=== PATIENT | female | born 1955 | race Caucasian/White ===

== ENCOUNTER 2023-06-21 18:59 | Emergency (ER) | payer MEDICAID, OTHER ==
[~2023-06-21] VITALS: Ht 147.3 cm; Wt 68.2 kg
[~2023-06-21 18:59] MED LIST: CALC667T3 PO; DEXT15SY3 PO; ERGO500050 PO; ESCI-8 PO; LEVO-72 PO; METO-558 PO; NIFE90TA4 PO
[2023-06-21 19:07] VITALS: TEMP 97.7
[2023-06-21] MEDS ORDERED: CefTRIAXone 1 GM/DEXTROSE 50 ML IV ONE (19:30)
[2023-06-21] MEDS ORDERED: SODIUM CHLORIDE 0.9% 1,000 ML IV ONE (19:30)
[2023-06-21 19:50] LABS: BASOPHILS % (AUTO) 1.3 % (0.0-2.0); EOSINOPHILS % (AUTO) 1.5 % (1.0-6.0); HEMATOCRIT 39.7 % (36-46); HEMOGLOBIN 12.3 g/dL (12.0-16.0); LYMPHOCYTES # (AUTO) 0.6 K/uL (1.0-4.8); LYMPHOCYTES % (AUTO) 11.7 % (22.0-44.0); MEAN CORPUSCULAR HEMOGLOBIN 30.7 pg (26.0-34.0); MEAN CORPUSCULAR HGB CONC 31.1 G/dL (31.0-37.0); MEAN CORPUSCULAR VOLUME 99 fL (80-100); MONOCYTES # (AUTO) 0.6 K/uL (0.1-1.0); MONOCYTES % (AUTO) 12.3 % (2.0-9.0); NEUTROPHILS # (AUTO) 3.6 K/uL (1.8-7.7); NEUTROPHILS % (AUTO) 73.2 % (40.0-70.0); PLATELET COUNT (AUTO) 142 K/uL (150-450); RED BLOOD CELL COUNT(AUTO) 4.01 MIL/uL (4.00-5.20); RED CELL DISTRIBUTION WIDTH 18.8 % (11.5-14.5)
[2023-06-21 19:56] LABS: CALCIUM, TOTAL 9.1 mg/dL (8.8-10.5); CREATININE 3.85 mg/dL (0.60-1.30); POTASSIUM 3.4 mmol/L (3.5-5.1)
[2023-06-21 20:02] LABS: BILIRUBIN,TOTAL 1.1 mg/dL (0.1-1.0); TOTAL PROTEIN, SERUM 7.5 g/dL (6.4-8.2)
[2023-06-21 20:13] LABS: LACTIC ACID 1.1 mmol/L (0.4-2.0)
[2023-06-21 20:21] LABS: ALBUMIN 2.9 g/dL (3.4-5.0)
[2023-06-21 21:35] VITALS: BP 98/44; PULSE 102; RESP 18
== END 2023-06-21 22:15 | disposition left against medical advice (07) ==
LOC: EMS 19:01
DX: L03.116 Cellulitis of left lower limb (principal); L03.115 Cellulitis of right lower limb; I95.9 Hypotension, unspecified; I12.0 Hypertensive chronic kidney disease with stage 5 chronic kidney disease or end stage renal disease; N18.6 End stage renal disease; Z99.2 Dependence on renal dialysis; Z98.890 Other specified postprocedural states; Z94.0 Kidney transplant status; Z91.013 Allergy to seafood
CPT/HCPCS: 99291; 96365; 80053; 83605; 85025; 87040; 36415; 71045; 73590; 93005; J0696